=== PATIENT | female | born 1960 | race African-American/Black ===

== ENCOUNTER 2018-10-26 18:56 | Emergency (ER) | payer OTHER ==
[~2018-10-26] VITALS: Ht 170.2 cm; Wt 73.0 kg
[2018-10-26] MEDS ORDERED: norco (19:53)
[2018-10-27] MEDS ORDERED: ACETAMINOPHEN 500MG TABLET PO ONE (01:00)
[2018-10-27 01:20] LABS: BASOPHILS % 1.2 % (0.0-2.0); CHLORIDE 110 mEq/L (98-107); EOSINOPHILS % 1.1 % (0.0-5.0); HEMATOCRIT. 36.6 % (36.0-48.0); HEMOGLOBIN. 12.6 g/dL (12.0-16.0); LYMPHOCYTES % 48.7 % (20.0-50.0); MEAN CORPUSCULAR HEMOGLOBIN 30.5 pg (28.0-32.0); MEAN CORPUSCULAR VOLUME 88.6 fL (81.0-99.0); MEAN PLATELET VOLUME 8.5 fl (7.4-10.4); MONOCYTES % 7.5 % (2.0-8.0); NEUTROPHILS % 41.5 % (40.0-76.0); PLATELET 249 x1000/uL (130-400); RED BLOOD CELL COUNT 4.14 mill/uL (4.2-5.4); RED CELL DISTRIBUTION WIDTH 12.4 % (11.6-14.6)
[2018-10-27 01:22] LABS: PROTHROMBIN TIME 10.4 sec (9.6-11.0)
[2018-10-27 01:35] LABS: CLARITY URINE CLEAR (CLEAR); COLOR URINE ORANGE (YELLOW); KETONES URINE NEGATIVE (NEGATIVE); LEUKOCYTE ESTERASE URINE NEGATIVE (NEGATIVE); NITRITE URINE NEGATIVE (NEGATIVE); OCCULT BLOOD URINE 3+ (NEGATIVE); PH URINE 6.5 (4.5-8.0); PROTEIN URINE NEGATIVE (NEGATIVE); SPECIFIC GRAVITY URINE 1.009 (1.005-1.030)
[2018-10-27] MEDS ORDERED: KETOROLAC 30MG/ML VIAL IV SCH (05:00)
[2018-10-27] MEDS ORDERED: TAMSULOSIN HCL 0.4MG SR CAPSULE PO SCH (05:00)
[2018-10-27] MEDS ORDERED: SODIUM CHLORIDE 0.9% 1,000 ML IV ONE (05:00)
[2018-10-27 06:13] VITALS: BP 138/88
== END 2018-10-26 19:58 | disposition home or self-care (01) ==
LOC: ER 18:56
DX: N13.2 Hydronephrosis with renal and ureteral calculous obstruction (principal); D35.02 Benign neoplasm of left adrenal gland; F17.210 Nicotine dependence, cigarettes, uncomplicated; F12.90 Cannabis use, unspecified, uncomplicated
CPT/HCPCS: 96374; 99284; J1885